=== PATIENT | male | born 1995 | race Caucasian/White ===

== ENCOUNTER 2023-04-05 20:30 | Observation (INO) | payer OTHER ==
[2023-04-05] MEDS ORDERED: Ondansetron PF 4 MG/2 ML Vial ONE (20:47)
[2023-04-05] MEDS ORDERED: Morphine 4 MG/ML VIAL ONE (20:47)
[2023-04-05] MEDS ORDERED: Ketorolac Tromethamine 30 MG/ML VIAL ONE (22:15)
[2023-04-06] MEDS ORDERED: Morphine 10 MG/ML VIAL ONE (00:30)
[2023-04-06] MEDS ORDERED: Sodium Chloride 0.9% 1,000 ML IV SCH (04:00)
[2023-04-06 04:33] VITALS: BMI 31.1
[2023-04-06] MEDS: Morphine 2 MG/ML VIAL SLOW IVP PRN ×2 (04:58→08:56)
[2023-04-06] MEDS: Sodium Chloride 0.9% 1,000 ML IV SCH ×2 (05:02→14:39)
[2023-04-06] MEDS: Ketorolac Tromethamine 30 MG/ML VIAL IVP SCH ×2 (06:13→14:40)
[2023-04-06] MEDS: Acetaminophen 500 MG TAB PO SCH ×3 (06:21→17:55)
[2023-04-06] MEDS ORDERED: traMADol HCl 50 MG TAB PO PRN (07:43)
[2023-04-06 08:35] LABS: #Eosinphils 0.3 thou/uL (0.0-0.7); #Monocytes 0.6 thou/uL (0.11-0.59); #Neutrophils 7.7 thou/uL (1.40-6.50); %Basophils 0.3 % (0.0-1.0); %Eosinophils 2.3 % (0.0-10.0); %Monocytes 5.5 % (0.0-10.0); %Neutrophils 66.5 % (42.0-75.0); Hemoglobin 13.8 g/dL (14.0-18.0); Mean Corpuscular HGB CONC 34.9 g/dL (32.0-36.0); Mean Corpuscular Hemoglobin 31.4 pg (27.0-31.0); Mean Corpuscular Volume 89.8 fl (78.0-98.0); Mean Platelet Volume 10.2 fL (7.4-10.4); Platelet Count 211 10x3/uL (130-400); RBC Distribution Width 12.3 % (11.5-14.5); White Blood Cell (WBC) Count 11.5 10x3/uL (4.8-10.8)
[2023-04-06 08:54] LABS: Anion Gap 14 mmol/L (10-20); BUN (Urea Nitrogen) 16 mg/dL (8.9-20.6); Calc. Creatinine Clearance 130 mL/min (70-130); Carbon Dioxide 23 mmol/L (22-29); Chloride 109 mmol/L (98-107); Estimated GFR 100; Glucose 97 mg/dL (70-105); INR-International Normal Ratio 1.1; PTT 28.5 sec (22.9-36.1); Potassium 4.2 mmol/L (3.5-5.1); Prothrombin Time 14.5 sec (12.0-14.7); Sodium 142 mmol/L (136-145)
[2023-04-06] MEDS ORDERED: HYDROmorphone 0.5 MG/0.5 ML SYRINGE ONE (11:31)
[2023-04-06] MEDS ORDERED: CEFAZOLIN 2 GM VIAL ONE (11:36)
[2023-04-06] MEDS ORDERED: Acetaminophen 325 MG TAB ONE (11:36)
[2023-04-06] MEDS ORDERED: Sodium Chloride 0.9% 100 ML ONE (11:36)
[2023-04-06] MEDS ORDERED: PROPOFOL 200 MG/20 ML VIAL ONE (11:58)
[2023-04-06] MEDS ORDERED: Lidocaine 1% PF 5 ML VIAL ONE (11:58)
[2023-04-06] MEDS ORDERED: Ketorolac Tromethamine 30 MG/ML VIAL ONE (11:58)
[2023-04-06] MEDS ORDERED: Dexamethasone 20 MG/5 ML VIAL ONE (11:58)
[2023-04-06] MEDS ORDERED: Ondansetron PF 4 MG/2 ML Vial ONE (11:58)
[2023-04-06] MEDS ORDERED: Ondansetron HCl/PF 4 MG/2 ML Vial IVP PRN (13:12)
[2023-04-06] MEDS ORDERED: HYDROmorphone 2 MG/ML VIAL SLOW IVP PRN (13:12)
[2023-04-06] MEDS ORDERED: PACU-Morphine 4MG/ML VIAL SLOW IVP PRN (13:12)
[2023-04-06] MEDS ORDERED: Promethazine HCl 25 MG/ML VIAL IM PRN (13:12)
[2023-04-06] MEDS ORDERED: fentaNYL 50 mcg/mL 1 mL Vial ONE ×2 (13:30→13:59)
[2023-04-06] MEDS: traMADol HCl 50 MG TAB PO SCH ×2 (14:39→17:54)
[2023-04-06] MEDS ORDERED: Ibuprofen 200 MG TAB PO SCH (16:00)
[2023-04-06 16:49] VITALS: BP 142/70; TEMP 98.7
== END 2023-04-06 20:30 | disposition home or self-care (01) ==
LOC: ERS 20:30 → INTOOBSV 04-06 02:40 → T4-B 04-06 02:40
PROVIDERS: ADMIT Surgery; ATTEND Surgery
PROC: 0PSJ04Z Reposition Left Radius with Internal Fixation Device, Open Approach (ICD-10-PCS; principal; 2023-04-06)
DX: S52.572A Other intraarticular fracture of lower end of left radius, initial encounter for closed fracture (principal); W17.89XA Other fall from one level to another, initial encounter; Z79.899 Other long term (current) drug therapy
CPT/HCPCS: 25600; 36415; 80048; 85025; 85610; 85730; 86850; 86900; 86901; 96374; 96375; 96376; C1713; J1100; J1170; J1885; J2270; J2272; J2405; J2704; J3010; J3490; J7050